=== PATIENT | female | born 1960 | race Caucasian/White ===

== ENCOUNTER 2017-06-15 06:00 | Day surgery (SDC) | payer OTHER ==
[2017-06-12 16:40] VITALS: BP 102/72
[2017-06-12 16:46] LABS: BASOPHILS % (AUTO) 0.5 % (0.0-5.0); EOSINOPHILS % (AUTO) 4.4 % (0.0-8.0); HEMATOCRIT 37.5 % (36-48); LYMPHOCYTES % (AUTO) 23.1 % (21.0-51.0); MEAN CORPUSCULAR HEMOGLOBIN 31.9 pg (27.0-33.0); MEAN CORPUSCULAR VOLUME 91.1 fL (79-99); MONOCYTES % (AUTO) 12.6 % (3.0-13.0); NEUTROPHILS % (AUTO) 59.4 % (40.0-77.0); PLATELET COUNT (AUTO) 235 K/uL (130-400); RED BLOOD CELL COUNT(AUTO) 4.11 MIL/uL (4.00-5.50); RED CELL DISTRIBUTION WIDTH 13.1 % (11.0-15.5); WHITE BLOOD COUNT (AUTO) 4.3 K/uL (4.8-10.8)
[2017-06-12 16:52] LABS: CREATININE 0.9 mg/dL (0.5-1.5); POTASSIUM 4.1 mmol/L (3.5-5.1)
[2017-06-12 16:56] LABS: INR 0.95 (0.85-1.15)
[~2017-06-15] VITALS: Ht 165.1 cm; Wt 101.1 kg
[2017-06-15] VITALS (16 sets, daily range): BP systolic 89–110; BP diastolic 47–67
[~2017-06-15 06:00] MED LIST: ASPI-1181 PO; ATOR-2 PO; CHOL100018 PO; CLOP75TA14 PO; DULO30CA51 PO; FLAX1000 PO; GABA-531 PO; LEVO100 PO; TRAM50TA4 PO; ZOLP10TA6 PO
[2017-06-15] MEDS ORDERED: SODIUM CHLORIDE 0.9% 1000ML 1,000 ML IV ONE (07:07)
[2017-06-15] MEDS ORDERED: MIDAZOLAM HCL 1 MG/ML 2ML VIAL ONE ×2 (13:19→14:24)
[2017-06-15] MEDS ORDERED: HEPARIN SODIUM 1000UNIT/ML 10ML VIAL ONE (13:19)
[2017-06-15] MEDS ORDERED: LIDOCAINE HCL 2% 20ML ONE (13:19)
[2017-06-15] MEDS ORDERED: MEPERIDINE-PF 50 MG/ML SYG ONE (13:19)
[2017-06-15] MEDS ORDERED: ISOPROTERENOL HCL 0.2 MG/ML AMP/VIAL/BAG ONE (14:00)
[2017-06-15] MEDS ORDERED: FENTANYL CITRATE PF 50 MCG/1 ML 2ML VIAL ONE (14:05)
[2017-06-15] MEDS ORDERED: ACETAMINOPHEN 325 MG TAB PO PRN (15:15)
== END 2017-06-15 18:15 | disposition home or self-care (01) ==
LOC: DAH 06:00
PROVIDERS: ATTEND Internal Medicine Cardiovascular Disease
DX: I25.10 Atherosclerotic heart disease of native coronary artery without angina pectoris (principal); I21.3 ST elevation (STEMI) myocardial infarction of unspecified site; Z95.1 Presence of aortocoronary bypass graft; M79.7 Fibromyalgia; Z68.38 Body mass index [BMI] 38.0-38.9, adult; I11.0 Hypertensive heart disease with heart failure; I50.22 Chronic systolic (congestive) heart failure; I25.5 Ischemic cardiomyopathy
CPT/HCPCS: 36415; 80048; 85025; 85610; 85730; 93620; C1730 ×2; C1894 ×2; J2250 ×2; J3010; J3490; J7030; 99152; 99153; J1644; J2175

== ENCOUNTER → 2018-02-22 | Outpatient (CLI) | payer OTHER ==
[~2018-02-22] MED LIST changes: -FLAX1000 PO; +FLAX100020 PO
== END | disposition home or self-care (01) ==
LOC: OIH 10:27
PROVIDERS: ATTEND Family Medicine
DX: M47.896 Other spondylosis, lumbar region (principal); Z90.49 Acquired absence of other specified parts of digestive tract
CPT/HCPCS: 72100

== ENCOUNTER → 2018-04-03 | Outpatient (CLI) | payer OTHER | END | disposition home or self-care (01) | LOC: OIH 14:39 | PROVIDERS: ATTEND Internal Medicine | DX: S93.602A Unspecified sprain of left foot, initial encounter (principal); M19.072 Primary osteoarthritis, left ankle and foot; M77.32 Calcaneal spur, left foot; X58.XXXA Exposure to other specified factors, initial encounter; Y93.89 Activity, other specified; Y92.89 Other specified places as the place of occurrence of the external cause; Y99.8 Other external cause status | CPT/HCPCS: 73630 ==

== ENCOUNTER → 2018-07-15 | Outpatient (CLI) | payer OTHER | END | disposition home or self-care (01) | LOC: OIH 16:13 | PROVIDERS: ATTEND Internal Medicine | DX: M17.11 Unilateral primary osteoarthritis, right knee (principal) | CPT/HCPCS: 73560 ==

== ENCOUNTER → 2019-02-07 | Outpatient (CLI) | payer MEDICARE ==
[~2019-02-07] MED LIST changes: -DULO30CA51 PO; +DULO30CA52 PO
== END | disposition home or self-care (01) ==
LOC: RAH 07:54
PROVIDERS: ATTEND Internal Medicine
DX: K57.30 Diverticulosis of large intestine without perforation or abscess without bleeding (principal)
CPT/HCPCS: 74176

== ENCOUNTER → 2019-04-11 | Outpatient (CLI) | payer MEDICARE | END | disposition home or self-care (01) | LOC: OIH 12:59 | PROVIDERS: ATTEND Internal Medicine | DX: M06.4 Inflammatory polyarthropathy (principal); M47.816 Spondylosis without myelopathy or radiculopathy, lumbar region | CPT/HCPCS: 72100; 72200 ==

== ENCOUNTER 2023-06-22 02:48 | Emergency (ER) | payer MEDICARE, OTHER ==
[~2023-06-22] VITALS: Ht 162.6 cm; Wt 100.7 kg
[~2023-06-22 02:48] MED LIST changes: -ASPI-1181 PO; +ASPI-1443 PO; +CLOP-31 PO; -CLOP75TA14 PO
[2023-06-22 03:47] LABS: BASOPHILS # (AUTO) 0.01 K/uL (0.00-0.20); BASOPHILS % (AUTO) 0.2 % (0.0-5.0); EOSINOPHILS # (AUTO) 0.11 K/uL (0.00-0.70); EOSINOPHILS % (AUTO) 2.5 % (0.0-8.0); HEMATOCRIT 34.5 % (36-48); IMMATURE GRANULOCYTE ABSOLUTE 0.01 K/uL (0-1); LYMPHOCYTES % (AUTO) 21.7 % (21.0-51.0); MEAN CORPUSCULAR HEMOGLOBIN 31.1 pg (27.0-33.0); MEAN CORPUSCULAR HGB CONC 33.9 g/dL (32.0-36.0); MEAN CORPUSCULAR VOLUME 91.8 fL (79-99); MONOCYTES # (AUTO) 0.4 K/uL (0.1-1.0); MONOCYTES % (AUTO) 7.9 % (3.0-13.0); NEUTROPHILS % (AUTO) 67.5 % (40.0-77.0); PLATELET COUNT (AUTO) 139 K/uL (130-400); RED BLOOD CELL COUNT(AUTO) 3.76 MIL/uL (4.00-5.50); RED CELL DISTRIBUTION WIDTH 12.8 % (11.0-15.5); WHITE BLOOD COUNT (AUTO) 4.4 K/uL (4.8-10.8)
[2023-06-22 04:24] LABS: ALANINE AMINOTRANSFERASE 13 U/L (12-78); ASPARTATE AMINOTRANSFERASE 14 U/L (10-37); BILIRUBIN,TOTAL 0.3 mg/dL (0.2-1.0); CARBON DIOXIDE 25 mmol/L (21-32); CHLORIDE 107 mmol/L (101-111); CREATINE KINASE, TOTAL 40 U/L (21-232); CREATININE 1.1 mg/dL (0.5-1.5); GLOMERULAR FILTR. RATE CALC 56 mL/min (>90); GLUCOSE,RANDOM 125 mg/dL (70-105); POTASSIUM 3.9 mmol/L (3.5-5.1); SODIUM SERUM 140 mmol/L (136-145); TOTAL PROTEIN, SERUM 6.5 g/dL (6.0-8.3); UREA NITROGEN, BLOOD 16 mg/dL (7-18)
[2023-06-22] MEDS ORDERED: PANT40TA55 PO (04:48)
[2023-06-22 05:32] VITALS: BP 98/57; PULSE 79; RESP 17; O2SAT 96
== END 2023-06-22 05:34 | disposition home or self-care (01) ==
LOC: EDH 02:48
DX: R07.89 Other chest pain (principal)
CPT/HCPCS: 36415; 71045; 80053; 82550; 83880; 84484; 85025; 85378; 93005

== ENCOUNTER 2024-11-18 05:28 | Emergency (ER) | payer OTHER ==
[~2024-11-18] VITALS: Ht 165.1 cm; Wt 91.2 kg
[~2024-11-18 05:28] MED LIST changes: +PANT40TA55 PO
--- NOTE | 2024-11-18 06:27 | NUR ---
PATIENT TAKEN TO CT SCAN AT THIS TIME, PURSE TURNED INTO SECURITY FOR HOLD.
[2024-11-18 06:40] LABS: AMPHET/METH SCREEN,URINE NEGATIVE (NEGATIVE); BARBITURATE SCREEN, URINE NEGATIVE (NEGATIVE); CANNABINOID SCREEN,URINE POSITIVE (NEGATIVE); COCAINE SCREEN,URINE NEGATIVE (NEGATIVE)
[2024-11-18 06:42] LABS: IMMATURE GRANULOCYTE ABSOLUTE 0.02 K/uL (0-1); NUCLEATED RED BLOOD CELLS 0.0 % (0.0-0.19); PLATELET COUNT (AUTO) 181 K/uL (130-400); RED BLOOD CELL COUNT(AUTO) 4.38 MIL/uL (4.00-5.50); RED CELL DISTRIBUTION WIDTH 12.5 % (11.0-15.5); WHITE BLOOD COUNT (AUTO) 4.8 K/uL (4.8-10.8)
[2024-11-18 06:49] LABS: CREATININE 0.9 mg/dL (0.5-1.0); GLOMERULAR FILTR. RATE CALC 71 mL/min (>90); GLUCOSE,RANDOM 106 mg/dL (70-105); SODIUM SERUM 141 mmol/L (136-145); UREA NITROGEN, BLOOD 19 mg/dL (7-18)
--- NOTE | 2024-11-18 06:49 | HMCIMG ---
EXAM: CR right ankle, 3 View. CLINICAL HISTORY: pain COMPARISON: None provided. FINDINGS: BONES: No acute fracture in the left ankle. Postsurgical changes from ORIF of the left medial malleolus and left lateral malleolus with intact hardware in satisfactory alignment. JOINTS: Mild degenerative changes in the ankle. SOFT TISSUES: The soft tissues are unremarkable. IMPRESSION: 1. No acute fracture or dislocation in the left ankle. 2. Postsurgical changes from ORIF of the left medial malleolus and left lateral malleolus with intact hardware in satisfactory alignment. 3. Mild degenerative changes in the ankle. /[place]
--- NOTE | 2024-11-18 06:53 | HMCIMG ---
EXAM: CT Abdomen and Pelvis Without IV contrast CLINICAL HISTORY: hip pain TECHNIQUE: Axial computed tomography images of the abdomen and pelvis without intravenous contrast. CONTRAST: No IV contrast. COMPARISON: None provided. FINDINGS: LUNG BASES: The lung bases appear clear. No pleural effusions are seen. LIVER: Unremarkable. GALLBLADDER AND BILE DUCTS: Cholecystectomy. No biliary duct dilatation. PANCREAS: Unremarkable. SPLEEN: Unremarkable. ADRENAL GLANDS: Unremarkable. KIDNEYS, URETERS, AND BLADDER: No renal or ureteral stones. No hydronephrosis. STOMACH AND BOWEL: No bowel obstruction or inflammation. Colonic diverticula without evidence of acute diverticulitis. APPENDIX: Normal appendix. PERITONEUM: No free fluid. No free air. LYMPH NODES: No lymphadenopathy is evident. REPRODUCTIVE: Unremarkable as visualized. VASCULATURE: Coronary artery calcifications. There are atherosclerotic calcifications in the abdominal aorta. There is no abdominal aortic aneurysm. BONES: Status post left hip arthroplasty. No acute fracture or dislocation. IMPRESSION: No acute abdominal or pelvic pathology. Atherosclerosis and coronary artery disease. /[facility]
[2024-11-18 06:54] LABS: APPEARANCE,URINE CLOUDY (CLEAR); GLUCOSE, URINE (UA) NEGATIVE (NEGATIVE); LEUKOCYTE ESTERASE ,URINE 500 Leu/uL (NEGATIVE); NITRATE,URINE NEGATIVE (NEGATIVE); OCCULT BLOOD,URINE SMALL (NEGATIVE)
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
[2024-11-18 07:00] LABS: ALCOHOL, BLOOD < 3 mg/dL (0-10)
[2024-11-18 07:02] LABS: ADD UA MICROSCOPIC YES
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
[2024-11-18 07:16] LABS: OTHER CASTS, URINE 10 /LPF (None Seen); SQUAMOUS EPITHELIAL CELL,UR MOD /HPF (0-2)
--- NOTE | 2024-11-18 07:31 | NUR ---
ASSESSED PATIENT, I ASKED PATIENT IF SHE TAKES ANY HOME MEDICATIONS FOR HER AFIB AND SHE STATED "NO, I STOPPED TAKING THEM, I HAVE NO DESIRE TO LIVE ANYMORE SO ILL JUST GO OUT NATURALLY". SUICIDE PRECAUTIONS INITIATED, 1 TO 1 JOHNNY HAAS AT BEDSIDE
--- NOTE | 2024-11-18 07:50 | NUR ---
[employer] OFFICER AT BEDSIDE SPEAKING TO PATIENT
--- NOTE | 2024-11-18 08:05 | NUR ---
CALLED [facility] AND SPOKE TO RENE IN REGARDS TO SCREENING
[2024-11-18] MEDS: LACTATED RINGERS IV ONE (08:17)
[2024-11-18] MEDS: diazePAM 5 MG TAB PO ONE (08:18)
--- NOTE | 2024-11-18 10:00 | NUR ---
FILI GUZMANER SPEAKING TO PATIENT IN ER ROOM 7
--- NOTE | 2024-11-18 12:08 | NUR ---
PATIENT CLEARED BY spotflux, DOES NOT MEET CRITERIA FOR SUICIDE Addendum: 11/18/24 at 1213 by ANDRIA ROSANNA FROM [facility]
[2024-11-18 12:21] VITALS: BP 119/55; PULSE 73; RESP 19; TEMP 98.3; O2SAT 96
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
== END 2024-11-18 13:21 | disposition home or self-care (01) ==
LOC: EDH 05:28
DX: F32.A Depression, unspecified (principal); I11.9 Hypertensive heart disease without heart failure; Z79.02 Long term (current) use of antithrombotics/antiplatelets; Z79.82 Long term (current) use of aspirin; Z79.899 Other long term (current) drug therapy; Z88.2 Allergy status to sulfonamides; Z88.5 Allergy status to narcotic agent; Z90.710 Acquired absence of both cervix and uterus; Z83.3 Family history of diabetes mellitus; Z95.5 Presence of coronary angioplasty implant and graft
CPT/HCPCS: 99285; 74176; 96374; 80048; 80305; 85025; 87086 ×2; 87186; 36415; 73600; 81001; G0481; J7120; J0696